=== PATIENT | female | born 1985 | race Caucasian/White ===

== ENCOUNTER 2019-08-24 12:20 | Inpatient (IN) | payer OTHER ==
[2019-08-24] MEDS ORDERED: BUTORPHANOL TARTRATE 1 MG/ML VIAL IVPB ONE (12:46)
[2019-08-24] MEDS ORDERED: PROMETHAZINE HCL 25 MG/1 ML VIAL IVPUSH ONE (12:46)
--- NOTE | 2019-08-24 12:53 | HP ---
Past Medical History - Admission History Source: Patient Limitations to Obtaining History: No Limitations - Past Medical History ...: 2 - Past Surgical History Past Surgical History: Yes: None Hx Myomectomy: No Hx Transabdominal Cerclage: No - Smoking History Smoking history: Never smoked Have you smoked in the past 12 months: No - Alcohol/Substance Use Hx Alcohol Use: No History of Substance Use: reports: None Home Medications - Allergies Allergies/Adverse Reactions: Allergies Allergy/AdvReac Type Severity Reaction Status Date / Time No Known Allergies Allergy Verified 05/23/12 22:37 - Home Medications Home Medications: Ambulatory Orders Ibuprofen [Motrin -] 600 mg PO Q4H PRN #1 tablet 05/26/12 Vitamins (Sjr) - 1 tab PO DAILY #1 tablet 05/26/12 Physical Exam - Maternity Constitutional: Yes: Well Nourished, No Distress Breast(s): Yes: WNL - Abdominal Exam/OB Fundal Height: 40 Number of Fetuses: Single Regularity: Irregular Intensity: Mild/Mod Monitor Mode: External Category: I Decelerations: None - Vaginal Exam/OB Speculum Exam: No Dilatation (cm): 4 Effacement (%): 80 Amniotic Membrane Status: Intact - Physical Exam Musculoskeletal: Yes: WNL Extremities: Yes: WNL Edema: No Psychiatric: Yes: WNL, Alert, Oriented Hemorrhage Risk Assessment - Risk Factors Risk Score: 0 Risk Level: Low Risk Problem List - Problems (1) Labor established Problems reviewed: Yes Code(s): [id number] - Assessment/Plan Labor established IUP @ 38.6 week x 1 Plan anticipate vaginal delivery
[2019-08-24] MEDS ORDERED: ELECTROLYTE-148 SOLN 1,000 ML IV SCH (13:00)
[2019-08-24 13:10] LABS: BASO % 0.6 % (0-2.0); EOS % 0.1 % (0-4.5); HEMATOCRIT 34.7 % (32.4-45.2); HEMOGLOBIN 11.7 GM/dL (10.7-15.3); MCH 29.1 pg (25.7-33.7); MCHC 33.8 g/dl (32.0-36.0); MEAN PLT VOLUME 8.4 fl (7.5-11.1); MONO % 5.9 % (3.8-10.2); NEUT % 76.4 % (42.8-82.8); PLATELET COUNT 206 K/MM3 (134-434); RBC 4.03 M/mm3 (3.60-5.2); RDW 13.6 % (11.6-15.6); WHITE BLOOD COUNT 8.1 K/mm3 (4.0-10.0)
[2019-08-24 13:25] LABS: INR 0.93 (0.83-1.09)
[2019-08-24 13:27] LABS: ACTIVATED PTT 30.8 SECONDS (25.2-36.5)
[2019-08-24 13:39] LABS: BLOOD UREA NITROGEN 10.2 mg/dL (7-18); CALCIUM 9.1 mg/dL (8.5-10.1); CREATININE 0.5 mg/dL (0.55-1.3); POTASSIUM 3.9 mmol/L (3.5-5.1)
[2019-08-24 14:02] VITALS: BMI 35.1
--- NOTE | 2019-08-24 19:12 | CONSULT ---
Past Medical History, Laborist - Admission Chief Complaint: Irregular ctx. 38w 6d. Labor? History of Present Illness: Patient admitted with ctx. Examined this AM and was 4 cm. Ctx are getting more regular. FH is good, cat.1. uneventful. Baby has sickle cell trait. GBS neg. EDC 08.31.2019. History Source: Patient Limitations to Obtaining History: No Limitations - Past Medical History COMMUNITY DEVELOPMENT DIRECTOR: Denies/None Cardio/Vascular: Denies/None Pulmonary: Denies/None Gastrointestinal: Denies/None Hepatobiliary: Denies/None Renal/: Denies/None ...: 2 ...Para: 1 ...Term: 1 ...: 0 ...Spon : 0 ...Induced : 0 ...Multiple Gestation: 0 ...LMP: 11/24/18 ... Weeks Gestation by Dates: 38.6 ...EDC by Dates: 08/31/19 ...EDC by Sono: 08/31/19 Heme/Onc: Denies/None Infectious Disease: Denies/None Psych: Denies/None Musculoskeletal: Denies/None Rheumatology: Denies/None ENT: Denies/None Dermatology: Denies/None - Past Surgical History Past Surgical History: Yes: None Additional Surgical History: Laparoscopy (endometriosis). Ov. cystectomy - Smoking History Smoking history: Never smoked Have you smoked in the past 12 months: No - Alcohol/Substance Use Hx Alcohol Use: No History of Substance Use: reports: None Review of Systems - Review of Systems Constitutional: reports: No Symptoms Eyes: reports: No Symptoms HENT: reports: No Symptoms Neck: reports: No Symptoms Cardiovascular: reports: No Symptoms Respiratory: reports: No Symptoms Gastrointestinal: reports: No Symptoms Genitourinary: reports: No Symptoms Breasts: reports: No Symptoms Reported Musculoskeletal: reports: No Symptoms Integumentary: reports: No Symptoms Neurological: reports: No Symptoms Endocrine: reports: No Symptoms Hematology/Lymphatic: reports: No Symptoms Psychiatric: reports: No Symptoms Physical Exam - Maternity Vital Signs: Vital Signs Temperature 98.1 F 08/24/19 18:00 Pulse Rate 85 08/24/19 18:00 Respiratory Rate 18 08/24/19 18:00 Blood Pressure 123/70 08/24/19 18:00 O2 Sat by Pulse Oximetry (%) Constitutional: Yes: Well Nourished, No Distress, Calm Eyes: Yes: WNL HENT: Yes: WNL Neck: Yes: WNL Cardiovascular: Yes: WNL Lungs: Clear to auscultation Breast(s): Yes: WNL - Abdominal Exam/OB Fundal Height: 49 Number of Fetuses: Single Presentation: Vertex Contractions: Yes Regularity: Irregular Intensity: Mild/Mod Monitor Mode: External Heart Rate (range): 140 [facility] Category: I Accelerations: Uniform Decelerations: None - Vaginal Exam/OB Vaginal Bleediing: No Speculum Exam: No Dilatation (cm): 4 Effacement (%): 80, soft Amniotic Membrane Status: Bulging Presentation: Vertex/Position Station: -2 - Physical Exam Musculoskeletal: Yes: WNL Extremities: Yes: WNL Edema: LUE: Trace, RUE: Trace, LLE: Trace, RLE: Trace Integumentary: Yes: WNL Deep Tendon Reflex Grade: Normal +2 ...Motor Strength: WNL Psychiatric: Yes: WNL - Labs Lab Results: CBC, BMP 08/24/19 13:00 08/24/19 13:00 Problem List - Problems (1) Term Code(s): Z34.90 - ENCNTR FOR SUPRVSN OF NORMAL , UNSP, UNSP TRIMESTER (2) Irregular uterine contractions Code(s): O62.2 - OTHER UTERINE INERTIA Assessment/Plan A: IUP 38 wks 6 days. Irregular ctx. Getting stronger, more regular Good FH, dilated 4 cm Comfortable. P: Observe, monitor, support. Allow labor to develop. Considering AROM, Oxytocin if no progress by tomorrow AM. Easy induction. D/w patient who is comfortable with the plan.
[2019-08-24] MEDS ORDERED: BUTORPHANOL TARTRATE 1 MG/ML VIAL ONE ×2 (21:20)
[2019-08-24] MEDS ORDERED: PROMETHAZINE HCL 25 MG/1 ML VIAL ONE (21:21)
[2019-08-24] MEDS ORDERED: LIDOCAINE HCL 1% PRESERVATIVE FREE - 30ML VIAL ONE (22:10)
[2019-08-24] MEDS ORDERED: OXYTOCIN 20 UNITS in 0.9% NS 20 UNIT/1,000 ML INFUS.BAG IV ONE (22:10)
[2019-08-25] MEDS ORDERED: OXYTOCIN 20 UNITS in 0.9% NS 20 UNIT/1,000 ML INFUS.BAG IV SCH (02:15)
[2019-08-25] MEDS ORDERED: BISACODYL 10 MG SUPP.RECT RC PRN (03:26)
[2019-08-25] MEDS ORDERED: BENZOCAINE 28 GM HEMORRHOIDAL OINTMENT TP PRN (03:26)
[2019-08-25] MEDS ORDERED: SENNOSIDES/DOCUSATE COMBO (SENNA PLUS) TABLET (UD) PO PRN (03:26)
[2019-08-25] MEDS ORDERED: BENZOCAINE 20% 57 GM BOTTLE TP PRN (03:27)
[2019-08-25] MEDS ORDERED: WITCH HAZEL 50% (TUCKS) 40 PAD/JAR PAD TP PRN (03:27)
[2019-08-25] MEDS ORDERED: METHYLERGONOVINE MALEATE 0.2 MG/1 ML AMP IM PRN (03:28)
--- NOTE | 2019-08-25 08:40 | PN ---
Post Note - Post Date of Delivery: 08/24/19 Post Day: 1 Vital Signs: Vital Signs - 24 hr 08/24/19 08/24/19 08/24/19 12:20 14:00 15:00 Temperature 97.9 F 98.4 F Pulse Rate 81 86 96 H Respiratory 20 18 18 Rate Blood Pressure 131/72 140/76 124/72 08/24/19 08/24/19 08/24/19 17:00 18:00 19:00 Temperature 98.4 F 98.1 F Pulse Rate 88 85 76 Respiratory 18 18 18 Rate Blood Pressure 130/66 123/70 115/61 08/24/19 08/24/19 08/24/19 20:00 21:36 22:00 Temperature 98 F Pulse Rate 70 84 87 Respiratory 18 18 20 Rate Blood Pressure 108/66 127/68 130/78 08/24/19 08/24/19 08/24/19 23:15 23:30 23:45 Temperature 98.2 F Pulse Rate 99 H 91 H 92 H Respiratory 20 20 20 Rate Blood Pressure 129/70 139/69 145/65 08/25/19 08/25/19 08/25/19 00:00 01:35 06:00 Temperature 98.5 F 98.8 F Pulse Rate 90 84 106 H Respiratory 20 18 18 Rate Blood Pressure 140/78 118/77 139/66 Labs: Laboratory Results - last 24 hr 08/24/19 08/24/19 08/24/19 13:00 13:00 13:00 WBC 8.1 RBC 4.03 Hgb 11.7 Hct 34.7 MCV 86.0 MCH 29.1 MCHC 33.8 RDW 13.6 Plt Count 206 MPV 8.4 Absolute Neuts (auto) 6.2 Neutrophils % 76.4 Lymphocytes % 17.0 D Monocytes % 5.9 Eosinophils % 0.1 D Basophils % 0.6 Nucleated RBC % 0 PT with INR 11.00 INR 0.93 PTT (Actin FS) 30.8 Sodium 138 Potassium 3.9 Chloride 106 Carbon Dioxide 23 Anion Gap 9 BUN 10.2 Creatinine 0.5 L Est GFR (CKD-EPI)AfAm 144.31 Est GFR (CKD-EPI)NonAf 124.51 Random Glucose 73 L Calcium 9.1 RPR Titer Blood Type Antibody Screen 10/07/19 10/07/19 13:00 13:00 WBC RBC Hgb Hct MCV MCH MCHC RDW Plt Count MPV Absolute Neuts (auto) Neutrophils % Lymphocytes % Monocytes % Eosinophils % Basophils % Nucleated RBC % PT with INR INR PTT (Actin FS) Sodium Potassium Chloride Carbon Dioxide Anion Gap BUN Creatinine Est GFR (CKD-EPI)AfAm Est GFR (CKD-EPI)NonAf Random Glucose Calcium RPR Titer Nonreactive Blood Type O POSITIVE Antibody Screen Negative - Subjective Subjective: No Complaints - Objective Afebrile: Yes Breast: Not engorged Abdomen: Soft Uterus: Fundus firm Vagina: Scant lochia Extremities: Non-tender - Assessment/Plan (1) Labor established Assessment: S/P Normal Plan: Routine Care
[2019-08-25 10:18] LABS: BASO % 0.6 % (0-2.0); EOS % 0.1 % (0-4.5); HEMATOCRIT 33.2 % (32.4-45.2); LYMPH % 14.6 % (8-40); MCH 28.6 pg (25.7-33.7); MEAN CELL VOLUME 86.7 fl (80-96); MEAN PLT VOLUME 8.7 fl (7.5-11.1); MONO % 5.6 % (3.8-10.2); NEUT % 79.1 % (42.8-82.8); PLATELET COUNT 187 K/MM3 (134-434); RBC 3.82 M/mm3 (3.60-5.2); RDW 13.3 % (11.6-15.6); WHITE BLOOD COUNT 12.3 K/mm3 (4.0-10.0)
[2019-08-25] MEDS: IBUPROFEN 600 MG TABLET (FP) PO PRN (11:16)
[2019-08-25] MEDS: ACETAMINOPHEN 325 MG TABLET (FP) PO PRN (11:17)
[2019-08-26] MEDS: IBUPROFEN 600 MG TABLET (FP) PO PRN (00:49)
[2019-08-26] MEDS: ACETAMINOPHEN 325 MG TABLET (FP) PO PRN (00:50)
--- NOTE | 2019-08-26 06:27 | DS ---
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 Vital Signs: Vital Signs Temperature 98.4 F 08/25/19 21:00 Pulse Rate 88 08/25/19 21:00 Respiratory Rate 18 08/25/19 21:00 Blood Pressure 112/68 08/25/19 21:00 O2 Sat by Pulse Oximetry (%) Constitutional: Yes: Well Nourished, No Distress Gastrointestinal: Yes: WNL, Soft ....Post : Yes: Uterus firm, Uterus non-tender Breast(s): Yes: WNL Musculoskeletal: Yes: WNL Extremities: Yes: WNL Edema: No Labs: CBC, BMP 08/25/19 09:55 08/24/19 13:00 Delivery - Delivery Type of Anesthesia: Local Episiotomy/Laceration: Midline EBL (cc): 300 Delivery, Single - Stages of Labor Date 1st Stage Initiatied: 08/24/19 Time 1st Stage Initiated: 05:00 Date 2nd Stage Initiated: 08/24/19 Time 2nd Stage Initiated: 22:30 Date of Delivery: 08/24/19 Time of Delivery: 22:46 Time Placenta Delivered: 22:48 - Condition of Infant Emergency Specialist/Submarine Cable Equipment Technician Present: No Gender: Female Weight: 7 lb 12 oz Position: Right, OA Total Hours ROM (Hrs/Mins): 46M - 1 Minute Total Score: 9 5 Minutes Total Score: 9 - Feeding Plan Initial Plan: Exclusive throughout hospitalization Discharge Summary Reason For Visit: LABOR ADMISSION Current Active Problems Irregular uterine contractions (Acute) Labor established (Acute) Term (Acute) Procedures: Principal: normal vaginal delivery Condition: Good - Instructions Diet, Activity, Other Instructions: Physical activity Resume your normal everyday activity as tolerated no heavy lifting or exercise until seen by your surgeon. You may walk unlimited ever of and climb stairs. You may resume driving the car when you feel safe and comfortable behind the wheel. No sexual activity as instructed. Wound care If you have a bandage, leave it on, and keep dry for 48-72 hours. After that time discard the outer bandage. If they are tapes on the skin under the out of bandage leave them in place. They will peel off in the next 7 to 10 days. Do Not Peel them off. You may shower the day after surgery. If there are tapes present on the skin, you may shower over them. Diet There are no dietary restrictions. Eat healthy, high-fiber foods. Drink 6 to 8 glasses of liquid each day. This will assist in keeping your bowels are regular. Pain management You may take Tylenol or acetaminophen or Ibuprofen (for example, Motrin, Advil etc.) from my pain prescription medication is ordered should be taken as prescribed for moderate to severe pain. Call MD for any of the following: Severe pain not relieved by medication Fever of 101 or higher Excessive bleeding or drainage on dressing Inability to urinate Referrals: Laura Rothman MD [Staff Physician] - Disposition: HOME - Home Medications Comprehensive Discharge Medication List: Ambulatory Orders Cyanocobalamin (Vitamin B-12) [B-12] 1,000 mcg PO DAILY 08/24/19 Ferrous Sulfate 325 mg PO DAILY 08/24/19 Pnv No.95/Ferrous Fum/Folic AC [ Vitamin Tablet] 1 each PO DAILY Ibuprofen [Motrin -] 600 mg PO QID #28 tablet 08/25/19
[2019-08-26 08:33] VITALS: BP 125/75; PULSE 78; TEMP 98.6
--- NOTE | 2019-08-28 20:49 | PN ---
Delivery - Delivery Vaginal Delivery: Spontaneous Type of Anesthesia: Local Episiotomy/Laceration: Midline EBL (cc): 300 Delivery, Single - Stages of Labor Date 1st Stage Initiatied: 08/24/19 Time 1st Stage Initiated: 05:00 Date 2nd Stage Initiated: 08/24/19 Time 2nd Stage Initiated: 22:30 Date of Delivery: 08/24/19 Time of Delivery: 22:46 Time Placenta Delivered: 22:48 - Condition of Infant Manager Online/Demo Coordinator Present: No Gender: Female Weight: 7 lb 12 oz Position: Right, OA Total Hours ROM (Hrs/Mins): 46M - 1 Minute Total Score: 9 5 Minutes Total Score: 9 - [place] Feeding Plan Initial Plan: Exclusive throughout hospitalization Remarks - Remarks Remarks: Normal spontaneous vaginal delivery of a live infant girl over midline episiotomy. Nose / Oropharynx suctioned @ perineum. Cord clamped and cut. Baby handed to nurse. Placenta expelled spontaneously intact. Episiotomy repaired with 2.0 Chromic.
== END 2019-08-26 14:30 | disposition home or self-care (01) | DRG 807 ==
LOC: JLDR 12:20 → J3W 08-25 01:35
PROVIDERS: ADMIT Obstetrics & Gynecology; ATTEND Obstetrics & Gynecology
PROC: 10E0XZZ Delivery of Products of Conception, External Approach (ICD-10-PCS; principal; 2019-08-24)
PROC: 0W8NXZZ Division of Female Perineum, External Approach (ICD-10-PCS; 2019-08-24)
DX: O80 Encounter for full-term uncomplicated delivery (principal); Z37.0 Single live birth; Z3A.38 38 weeks gestation of pregnancy
CPT/HCPCS: 36415; 59409; 80048; 85025; 85610; 85730; 86593; 86850; 86900; 86901

== ENCOUNTER 2019-09-19 19:33 | Emergency (ER) | payer OTHER ==
[2019-09-19 19:48] VITALS: BP 112/70; PULSE 83; TEMP 98.2; BMI 31.1
--- NOTE | 2019-09-19 21:06 | PDOC ---
History of Present Illness - General Chief Complaint: Injury Stated Complaint: LACERATION Time Seen by Provider: 09/19/19 20:11 History Source: Patient Exam Limitations: No Limitations Past History - Past Medical History Allergies/Adverse Reactions: Allergies Allergy/AdvReac Type Severity Reaction Status Date / Time Latex, Natural Rubber Allergy Mild Rash Verified 08/24/19 13:48 cows milk Allergy Intermediate Itching Uncoded 08/24/19 13:48 sun Allergy Intermediate Rash Uncoded 08/24/19 13:48 Home Medications: Ambulatory Orders Cyanocobalamin (Vitamin B-12) [B-12] 1,000 mcg PO DAILY 08/24/19 Ferrous Sulfate 325 mg PO DAILY 08/24/19 Pnv No.95/Ferrous Fum/Folic AC [ Vitamin Tablet] 1 each PO DAILY Ibuprofen [Motrin -] 600 mg PO QID #28 tablet 08/25/19 Asthma: No Cancer: No Cardiac Disorders: No COPD: No Diabetes: No HTN: No Seizures: No Thyroid Disease: No - Psycho Social/Smoking Cessation Hx Smoking History: Never smoked Have you smoked in the past 12 months: No Hx Alcohol Use: No Drug/Substance Use Hx: No Hx Substance Use Treatment: No *Physical Exam - Vital Signs Last Vital Signs Temp Pulse Resp BP Pulse Ox 98.2 F 83 19 112/70 98 09/19/19 19:46 09/19/19 19:46 09/19/19 19:46 09/19/19 19:46 09/19/19 19:46 - Physical Exam General Appearance: No: Apparent Distress Extremity: positive: Other (around 1 cm laceration along dorsal aspect of L hand , below ring finger, linear, FROM of L hand, L hand neurovascularly intact) Integumentary: negative: Ecchymosis, Bruising Neurologic: positive: Alert, Normal Mood/Affect Procedures - Laceration/Wound Repair Left Neck 4th digit Wound Length: to 2.5 cm Wound Explored: clean Wound's Depth, Shape: superficial Irrigated w/ Saline: Yes Betadine Prep: Yes Anesthesia: 1% Lidocaine Wound Debrided: moderate Wound Repaired With: Sutures Suture Size/Type: 5:0, nylon Number of Sutures: 3 Layer Closure: No Medical Decision Making - Medical Decision Making 34 y/o F with no sig pmh presents with laceration to L 4th finger after accidentally cutting it with kitchen knife today. Was taking pit out of avocado and cut finger. States is UTD on her tetanus. Denies other complaints Lac repaired - see note stable for dc 09/19/19 21:03 Discharge - Discharge Information Problems reviewed: Yes Clinical Impression/Diagnosis: Laceration Condition: Stable Disposition: HOME - Admission No - Additional Discharge Information Prescription Drug Monitoring Program (I-STOP) results: I-STOP not reviewed - Follow up/Referral Referrals: Everardo Castillo MD [Primary Care Provider] - - Patient Discharge Instructions Patient Printed Discharge Instructions: DI for Laceration Repair -- Simple Additional Instructions: Thank you for choosing [facility]. It was a pleasure taking care of you. Keep the site dry and clean for next 24 hours Then you may gently clean around site Return in 7-10 days for suture removal Return to the Emergency Department if your symptoms worsen or persist, you have fever, redness, purulent drainage, streaking or other concerning symptoms. - Post Discharge Activity
== END 2019-09-19 21:33 | disposition home or self-care (01) ==
LOC: JERFT 19:33
PROC: 0HQGXZZ Repair Left Hand Skin, External Approach (ICD-10-PCS; principal; 2019-09-19)
DX: S61.412A Laceration without foreign body of left hand, initial encounter (principal); W26.0XXA Contact with knife, initial encounter; Y93.G1 Activity, food preparation and clean up; Y92.010 Kitchen of single-family (private) house as the place of occurrence of the external cause; Y99.8 Other external cause status; Z91.040 Latex allergy status; Z91.011 Allergy to milk products; Z91.09 Other allergy status, other than to drugs and biological substances
CPT/HCPCS: 99281-25